=== PATIENT | male | born 1975 | race African-American/Black ===

== ENCOUNTER 2017-05-14 17:20 | Emergency (ER) | payer SELFPAY ==
[~2017-05-14] VITALS: Ht 193 cm; Wt 76.7 kg
[2017-05-14 18:39] LABS: ADD MIUA? YES; BILIRUBIN MODERATE; BLOOD NEGATIVE; COLOR AMBER ((YELLOW)); GLUCOSE (STRIP) NEGATIVE; KETONES 5; LEUKOCYTES NEGATIVE; NITRITE NEGATIVE; PROTEIN (STRIP) 100; SPECIFIC GRAVITY 1.033 (1.000-1.030)
[2017-05-14 18:49] LABS: ADD MEDTOX COMMENT Y; AMPHETAMINE NEGATIVE (500 ng/mL); BARBITURATES NEGATIVE (200 ng/mL); BENZODIAZEPINES NEGATIVE (150 ng/mL); COCAINE NEGATIVE (150 ng/mL); ICTOTEST POSITIVE; INTERNAL CONTROLS VALID? YES; METHADONE NEGATIVE (200 ng/mL); METHAMPHETAMINE NEGATIVE (500 ng/mL); OPIATES (MORPHINE) NEGATIVE (100 ng/mL); OXYCODONE NEGATIVE (100 ng/mL); PHENCYCLIDINE NEGATIVE (25 ng/mL); PROPOXYPHENE NEGATIVE (300 ng/mL); THC CANNABINOIDS PRESUMPTIVE POSITIVE (50 ng/mL); TRICYCLIC ANTIDEPRESSANTS NEGATIVE (300 ng/mL)
[2017-05-14 18:58] LABS: BACTERIA NONE SEEN /HPF; EPITHELIAL CELLS RARE /HPF; MUCUS 2+ /LPF; RED BLOOD CELLS NONE SEEN /HPF (0-5); WHITE BLOOD CELLS 0-5 /HPF (0-5)
[2017-05-14 18:59] LABS: CASTS PRESENT /LPF; CRYSTALS NONE SEEN
[2017-05-14 19:22] LABS: HEMATOCRIT 47.8 % (38.0-50.0); MCH 32.3 PG (29.0-34.0); MCHC 34.5 G/DL (30.0-36.0); MCV 93.5 FL (86-99); MEAN PLAT.VOLUME 8.9 uM^3 (9.0-12.4); PLATELET COUNT 322 K/uL (156-360); RBC DIS.WIDTH-CV 13.5 % (11.8-14.6); RBC DIS.WIDTH-SD 46.4 % (39-53); RED BLOOD COUNT 5.11 M/uL (4.00-5.50); WHITE BLOOD COUNT 9.5 K/uL (4.1-10.2)
[2017-05-14 19:36] LABS: CHLORIDE 107 mEq/L (99-109); POTASSIUM 3.8 mEq/L (3.7-5.4); SODIUM 140 mEq/L (136-147)
[2017-05-14 19:37] LABS: GLUCOSE 106 mg/dL (70-99)
[2017-05-14 19:39] LABS: ANION GAP 9 MEQ/L (2-14)
[2017-05-14 19:41] LABS: GFR ESTIMATE (CALCULATED) > 59 mL/min/; SERUM ETHYL ALCOHOL < 10 mg/dL
[2017-05-14 19:42] LABS: UREA NITROGEN (BUN) 8 mg/dL (9-23)
[2017-05-14] MEDS ORDERED: BENZTROPINE MESY2 MG PO (19:56)
[2017-05-14] MEDS ORDERED: HALDOL1 MG PO (19:56)
[2017-05-14] MEDS ORDERED: CELEXA20 MG PO (19:56)
[2017-05-14 20:07] VITALS: BP 121/73
== END 2017-05-14 20:12 | disposition home or self-care (01) ==
LOC: EME 17:20
PROVIDERS: Nurse Practitioner Family
DX: R44.0 Auditory hallucinations (principal); F12.90 Cannabis use, unspecified, uncomplicated; F17.210 Nicotine dependence, cigarettes, uncomplicated; Z88.0 Allergy status to penicillin
CPT/HCPCS: 80048; 81003; 84999; 85027; 90839; 99281; 99284; G0480